=== PATIENT | female | born 1990 | race Caucasian/White ===

== ENCOUNTER 2016-05-13 14:15 | Emergency (ER) | payer OTHER ==
[2016-05-13 14:32] VITALS: BP 146/84; PULSE 101; RESP 20; TEMP 98
[2016-05-13] MEDS ORDERED: MORPHINE SULFATE 10 MG/ML SYRINGE IM STA (15:13)
[2016-05-13] MEDS ORDERED: KETOROLAC 60 MG/2 ML VIAL IM STA (15:13)
--- NOTE | 2016-05-13 15:16 | ED ---
General Adult HPI - General Chief complaint: Extremity Problem,Nontraumatic Stated complaint: L wrist injury Time Seen by Provider: 05/13/16 14:30 Source: patient, RN notes reviewed Mode of arrival: ambulatory Limitations: no limitations - History of Present Illness Initial comments: This is a 25-year-old female presents to the emergency department with a known history of carpal tunnel left wrist. Patient states she recently had injections by Dr. Tapia but still carpal tunnel is so painful she can't move her wrist. Patient states she's only been wearing her brace at night. Patient states she only takes Motrin at this time. Patient denies any recent injury or trauma to the area. Patient denies any hand pain or finger pain patient denies any elbow pain. Patient denies any swelling or redness. - Related Data Home Medications Medication Instructions Recorded Confirmed Cyclobenzaprine [Flexeril] 10 mg PO TID PRN 11/11/14 05/13/16 Previous Rx's Medication Instructions Recorded Ibuprofen [Motrin] 600 mg PO Q6HR PRN #20 tab 05/13/16 traMADol HCl [Ultram] 50 mg PO Q6H PRN #20 tab 05/13/16 Allergies Allergy/AdvReac Type Severity Reaction Status Date / Time cefprozil [From Cefzil] Allergy Unknown Verified 05/13/16 15:13 Review of Systems ROS Statement: Those systems with pertinent positive or pertinent negative responses have been documented in the HPI. ROS Other: All systems not noted in ROS Statement are negative. Past Medical History Past Medical History: Asthma Additional Past Medical History / Comment(s): back/neck pain, carpal tunnel History of Any Multi-Drug Resistant Organisms: None Reported Past Surgical History: Orthopedic Surgery Additional Past Surgical History / Comment(s): right ankle surgery 2013 Past Psychological History: No Psychological Hx Reported Smoking Status: Current every day smoker Past Alcohol Use History: Occasional Past Drug Use History: Marijuana General Exam - General Exam Comments Initial Comments: GENERAL Patient is well-developed and well-nourished. Patient is in mild distress. EYES Patient's pupils are equal and round. Extraocular motion is intact SKIN Unremarkable NEURO The patient is alert and oriented 3 PYSCH Patient has normal interpersonal interactions. MUSCULOSKELETAL Patient's wrist is tender in the anterior aspect of the wrist on the radial side. There is no swelling or redness patient does have full range of motion but it is painful Limitations: no limitations Course Vital Signs 05/13/16 14:29 Temperature 98.0 F Pulse Rate 101 H Respiratory 20 Rate Blood Pressure 146/84 O2 Sat by Pulse 99 Oximetry Disposition Clinical Impression: Carpal tunnel syndrome Disposition: HOME SELF-CARE Condition: Good Additional Instructions: Patient should take Motrin tramadol as prescribed. Patient should follow-up with orthopedics. Patient should wear her wrist brace all day long. Prescriptions: Ibuprofen [Motrin] 600 mg PO Q6HR PRN #20 tab PRN Reason: For pain traMADol HCl [Ultram] 50 mg PO Q6H PRN #20 tab PRN Reason: When necessary for pain Referrals: Dominik Viramontes MD [Primary Care Provider] - 1-2 days Time of Disposition: 15:15
== END 2016-05-13 15:31 | disposition home or self-care (01) ==
LOC: EC 14:15
DX: G56.02 Carpal tunnel syndrome, left upper limb (principal); F17.200 Nicotine dependence, unspecified, uncomplicated; Z88.1 Allergy status to other antibiotic agents
CPT/HCPCS: 99283; 96372 ×2; J2270; J1885

== ENCOUNTER 2017-01-15 11:23 | Observation (INO) | payer OTHER ==
[2017-01-15] MEDS ORDERED: methylPREDNISolone SOD SUCCI 125 MG/2 ML VIAL IV STA (11:44)
[2017-01-15] MEDS ORDERED: ALBUTEROL NEBULIZED 7.5 MG, IPRATROPIUM NEBULIZED 0.5 MG, SODIUM CHLORIDE 0.9% NEBULIZ ... INHALATION ONE ×3 (11:44)
[2017-01-15] MEDS ORDERED: IPRATROPIUM 0.5 MG/2.5 ML NEBU INHALATION STA (11:44)
--- NOTE | 2017-01-15 11:47 | ED ---
General Adult HPI - General Chief complaint: Shortness of Breath Stated complaint: JENNI Time Seen by Provider: 01/15/17 11:30 Source: patient, RN notes reviewed Mode of arrival: wheelchair Limitations: no limitations - History of Present Illness Initial comments: This is a 26-year-old female with past medical history significant for asthma. Patient comes in today stating that she is having an asthma exacerbation. Patient states about ongoing for 3 days. Patient states she has had a low- grade fever but hasn't taken her temperature. Patient has done breathing treatments but they haven't helped. Patient denies any chest pain or palpitations. Patient denies any nausea vomiting diarrhea. denies any leg swelling or calf tenderness. Patient denies headache patient denies numbness weakness. Patient denies any near syncopal or syncopal episodes. - Related Data Home Medications Medication Instructions Recorded Confirmed Albuterol Inhaler [Ventolin Hfa 1 - 2 puff INHALATION RT-Q6H PRN 01/15/17 Inhaler] Albuterol Nebulized [Ventolin 2.5 mg INHALATION RT-TID 01/15/17 01/15/17 Nebulized] Azithromycin [Zithromax Z-pack] See Taper PO DAILY 01/15/17 01/15/17 predniSONE 40 mg PO DAILY 01/15/17 01/15/17 Allergies Allergy/AdvReac Type Severity Reaction Status Date / Time cefprozil [From Cefzil] Allergy Unknown Verified 01/15/17 11:38 Review of Systems ROS Statement: Those systems with pertinent positive or pertinent negative responses have been documented in the HPI. ROS Other: All systems not noted in ROS Statement are negative. Past Medical History Past Medical History: Asthma Additional Past Medical History / Comment(s): back/neck pain, carpal tunnel History of Any Multi-Drug Resistant Organisms: None Reported Past Surgical History: Orthopedic Surgery Additional Past Surgical History / Comment(s): right ankle surgery 2013 Past Psychological History: No Psychological Hx Reported Smoking Status: Former smoker Past Alcohol Use History: Occasional Past Drug Use History: Marijuana General Exam - General Exam Comments Initial Comments: GENERAL: Patient is well-developed and well-nourished. Patient is nontoxic and well- hydrated and is in no acute distress. ENT: Neck is soft and supple. No significant lymphadenopathy is noted. Oropharynx is clear. Moist mucous membranes. EYES: The sclera were anicteric and conjunctiva were pink and moist. Extraocular movements were intact and pupils were equal round and reactive to light. Eyelids were unremarkable. PULMONARY: Patient's air movement is decreased. Patient is wheezing diffusely. CARDIOVASCULAR: There is a regular rate and rhythm without any murmurs gallops or rubs. Femoral pulses are equal bilaterally ABDOMEN: Soft and nontender with normal bowel sounds. Patient is morbidly obese SKIN: Skin is clear with no lesions or rashes and otherwise unremarkable. NEUROLOGIC: Patient is alert and oriented x3. Cranial nerves II through XII are grossly intact. Motor and sensory are also intact. Normal speech, volume and content. Symmetrical smile. MUSCULOSKELETAL: Normal extremities with adequate strength and full range of motion. No lower extremity swelling or edema. No calf tenderness. LYMPHATICS: No significant lymphadenopathy is noted PSYCHIATRIC: Normal psychiatric evaluation. Limitations: no limitations Course Vital Signs 01/15/17 01/15/17 01/15/17 11:29 12:15 12:30 Temperature 97.1 F L Pulse Rate 90 100 105 H Respiratory 24 Rate Blood Pressure 109/54 O2 Sat by Pulse 98 Oximetry 01/15/17 01/15/17 13:09 13:13 Temperature Pulse Rate 101 H 114 H Respiratory 20 Rate Blood Pressure 123/66 O2 Sat by Pulse 100 Oximetry Medical Decision Making - Medical Decision Making EKG shows sinus tachycardia at 109 bpm TX interval is 148 QRSs 86 QT interval 360 QTC is 484 per patient's EKG shows no ST segment elevation or depression or T wave abnormalities are noted. Chest x-ray showed no acute abnormality. After 3 breathing treatments the patient was still wheezing diffusely did not feel good enough to go home. I spoke with Dr. Alonso he agreed to admit the patient admitted the patient I wrote admitting orders - Lab Data Result diagrams: 01/15/17 12:05 01/15/17 12:05 Lab Results 01/15/17 01/15/17 01/15/17 Range/Units 12:05 12:05 12:05 WBC 14.6 H (3.8-10.6) k/uL RBC 5.23 (3.80-5.40) m/uL Hgb 14.9 (11.4-16.0) gm/dL Hct 44.5 (34.0-46.0) % MCV 85.0 (80.0-100.0) fL MCH 28.5 (25.0-35.0) pg MCHC 33.5 (31.0-37.0) g/dL RDW 15.6 H (11.5-15.5) % Plt Count 229 (150-450) k/uL Neutrophils % 73 % Lymphocytes % 16 % Monocytes % 6 % Eosinophils % 3 % Basophils % 0 % Neutrophils # 10.6 H (1.3-7.7) k/uL Lymphocytes # 2.4 (1.0-4.8) k/uL Monocytes # 0.9 (0-1.0) k/uL Eosinophils # 0.5 (0-0.7) k/uL Basophils # 0.1 (0-0.2) k/uL Sodium 143 (137-145) mmol/L Potassium 4.1 (3.5-5.1) mmol/L Chloride 109 H (98-107) mmol/L Carbon Dioxide 23 (22-30) mmol/L Anion Gap 11 mmol/L BUN 18 H (7-17) mg/dL Creatinine 0.78 (0.52-1.04) mg/dL Est GFR (MDRD) Af Amer >60 (>60 ml/min/1.73 sqM) Est GFR (MDRD) Non-Af >60 (>60 ml/min/1.73 sqM) Glucose 88 (74-99) mg/dL Calcium 9.6 (8.4-10.2) mg/dL Total Bilirubin 0.5 (0.2-1.3) mg/dL AST 38 H (14-36) U/L ALT 39 (9-52) U/L Alkaline Phosphatase 58 (38-126) U/L NT-Pro-B Natriuret Pep 102 pg/mL Total Protein 7.5 (6.3-8.2) g/dL Albumin 4.2 (3.5-5.0) g/dL Disposition Clinical Impression: Status asthmaticus Disposition: ADMITTED IP TO THIS HOSP Referrals: Nonstaff,Physician [REFERRING] - 1-2 days Time of Disposition: 14:27
[2017-01-15 12:21] LABS: Basophils # (A) 0.1 k/uL (0-0.2); Basophils % (A) 0 %; Eosinophils # (A) 0.5 k/uL (0-0.7); Eosinophils % (A) 3 %; HCT 44.5 % (34.0-46.0); HGB 14.9 gm/dL (11.4-16.0); Lymphocytes # (A) 2.4 k/uL (1.0-4.8); Lymphocytes % (A) 16 %; MCH 28.5 pg (25.0-35.0); MCHC 33.5 g/dL (31.0-37.0); Mean Platelet Volume 8.2; Monocytes # (A) 0.9 k/uL (0-1.0); Monocytes % (A) 6 %; Neutrophils # (A) 10.6 k/uL (1.3-7.7); Neutrophils % (A) 73 %; Platelet Count 229 k/uL (150-450); RBC 5.23 m/uL (3.80-5.40); RDW 15.6 % (11.5-15.5); WBC 14.6 k/uL (3.8-10.6)
[2017-01-15 12:31] LABS: ALT 39 U/L (9-52); AST 38 U/L (14-36); Albumin 4.2 g/dL (3.5-5.0); Alkaline Phosphatase 58 U/L (38-126); Anion Gap 11 mmol/L; Blood Urea Nitrogen 18 mg/dL (7-17); Calcium 9.6 mg/dL (8.4-10.2); Carbon Dioxide 23 mmol/L (22-30); Chloride 109 mmol/L (98-107); Glucose 88 mg/dL (74-99); Potassium 4.1 mmol/L (3.5-5.1); Sodium 143 mmol/L (137-145); Total Bilirubin 0.5 mg/dL (0.2-1.3); Total Protein 7.5 g/dL (6.3-8.2)
--- NOTE | 2017-01-15 12:36 | XR ---
EXAMINATION TYPE: XR chest 1V portable DATE OF EXAM: 01/15/2017 COMPARISON: NONE HISTORY: History of asthma with difficulty in breathing. TECHNIQUE: Single frontal view of the chest is obtained. FINDINGS: Low lung volumes are present. There is no focal air space opacity, pleural effusion, or pn eumothorax seen. The cardiac silhouette size is within normal limits. The osseous structures are i ntact. IMPRESSION: Low lung volumes or suboptimal inspiration without suspicious acute air space opacity.
[2017-01-15 15:32] VITALS: BMI 46.3
[2017-01-15] MEDS ORDERED: DOCUSATE 100 MG CAP PO PRN (16:49)
[2017-01-15] MEDS: HYDROcodone/APAP 7.5-325MG 1 EACH TAB PO PRN (17:49)
[2017-01-15] MEDS: methylPREDNISolone SOD SUCCI 125 MG/2 ML VIAL IV SCH (17:50)
[2017-01-15 20:45] LABS: Glucose,Whole Blood 120 mg/dL (75-99)
[2017-01-15] MEDS: IPRATROPIUM-ALBUTEROL 3 ML NEB INHALATION PRN (20:57)
[2017-01-15] MEDS ORDERED: INSULIN ASPART 100 UNIT/ML 1 ML 10 ML VIAL SQ SCH (21:00)
[2017-01-15] MEDS: INSULIN ASPART 100 UNIT/ML 1 ML 10 ML VIAL SQ SCH (21:36)
--- NOTE | 2017-01-15 22:18 | P.HPIM ---
History of Present Illness H&P Date: 01/15/17 Chief Complaint: Shortness of breath Patient is a 26-year-old female with past medical history significant for asthma since childhood and morbid obesity came to the hospital with complaints of worsening short of breath for the past 3 days. Patient was seen by her primary care physician and was started on prednisone and antibiotics in the form of azithromycin. Patient has been having worsening symptoms which made her to come to the hospital. Patient states she has had a low-grade fever but hasn't taken her temperature. Patient has done breathing treatments but they haven't helped. Patient denies any chest pain or palpitations. Patient denies any nausea vomiting diarrhea. Patient denies any leg swelling or calf tenderness. Patient denies headache patient denies numbness weakness. Patient denies any near syncopal or syncopal episodes. Patient denied any prior intubation. Chest x-ray showed low lung volume are suboptimal inspiration without suspicious for airspace disease EKG showed sinus tachycardia Review of Systems Constitutional: He does have subjective fevers and no chills . No generalized weakness or weight loss. Abdomen: Patient denied nausea vomiting and diarrhea and abdominal pain. Cardiovascular: Patient denies any chest pain or short of breath no palpitations. No leg swelling Respiratory: Patient has cough with mostly dry with mucus production. Patient does have shortness of breath. Neurologic: Patient denied any numbness or tingling headache. Musculoskeletal: Patient denies any complaints of joint swelling or deformity. Skin: Negative Psychiatric: Negative Endocrine: No heat or cold intolerance. No recent weight gain. Genitourinary: No dysuria or hematuria. All other 14 point ROS negative except the above Past Medical History Past Medical History: Asthma Additional Past Medical History / Comment(s): back/neck pain, carpal tunnel History of Any Multi-Drug Resistant Organisms: None Reported Past Surgical History: Orthopedic Surgery Additional Past Surgical History / Comment(s): right ankle surgery 2013 Past Psychological History: No Psychological Hx Reported Smoking Status: Former smoker Past Alcohol Use History: Occasional Past Drug Use History: Marijuana Medications and Allergies Home Medications Medication Instructions Recorded Confirmed Type Albuterol Inhaler [Ventolin Hfa 1 - 2 puff INHALATION RT-Q6H PRN 01/15/17 History Inhaler] Albuterol Nebulized [Ventolin 2.5 mg INHALATION RT-TID 01/15/17 01/15/17 History Nebulized] Azithromycin [Zithromax Z-pack] See Taper PO DAILY 01/15/17 01/15/17 History HYDROcodone/APAP 7.5-325MG [[place] 1 tab PO Q8HR PRN 01/15/17 01/15/17 History 7.5-325] predniSONE 40 mg PO DAILY 01/15/17 01/15/17 History Allergies Allergy/AdvReac Type Severity Reaction Status Date / Time cefprozil [From Cefzil] Allergy Unknown Verified 01/15/17 11:38 Physical Exam Vitals: Vital Signs Temp Pulse Resp BP Pulse Ox 01/15/17 16:00 22 01/15/17 15:07 97.7 F 101 H 22 118/74 98 01/15/17 13:13 114 H 01/15/17 13:09 101 H 20 123/66 100 01/15/17 12:30 105 H 01/15/17 12:15 100 01/15/17 11:29 97.1 F L 90 24 109/54 98 Intake and Output 01/15/17 01/15/17 01/15/17 06:59 14:59 22:59 Other: Voiding Method Toilet Weight 142.428 kg 142.428 kg Patient Weight 01/16/17 06:59 Weight 142.428 kg PHYSICAL EXAMINATION: Patient is lying in the bed comfortably, no acute distress, awake alert and oriented.. HEENT: Normocephalic. Neck is supple. Pupils reactive. Nostrils clear. Oral cavity is moist. Ears reveal no drainage. Neck reveals no JVD, carotid bruits, or thyromegaly. CHEST EXAMINATION: Trachea is central. Symmetrical expansion. Bilateral diffuse rhonchi and decreased air entry. Wheezing positive CARDIAC: Normal S1, S2 with no gallops. No murmurs ABDOMEN: Soft. Bowel sounds normal. No organomegaly. No abdominal bruits. Extremities: reveal no edema. No clubbing or cyanosis Neurologically awake, alert, oriented x3 with well-coordinated movements. No focal deficits noted Skin: No rash or skin lesions. Psychiatric: coOperative. Nonsuicidal Musculoskeletal: No joint swelling or deformity. Normal range of motion. Results CBC & Chem 7: 01/15/17 12:05 01/15/17 12:05 Labs: Abnormal Lab Results - Last 24 Hours (Table) 01/15/17 01/15/17 Range/Units 12:05 12:05 WBC 14.6 H (3.8-10.6) k/uL RDW 15.6 H (11.5-15.5) % Neutrophils # 10.6 H (1.3-7.7) k/uL Chloride 109 H (98-107) mmol/L BUN 18 H (7-17) mg/dL AST 38 H (14-36) U/L Thrombosis Risk Factor Assmnt - DVT/VTE Prophylaxis DVT/VTE Prophylaxis: Pharmacologic Prophylaxis ordered - Choose All That Apply Any of the Below Risk Factors Present?: Yes Each Factor Represents 1 point: Abnormal pulmonary function (COPD), Obesity ( BMI >25) Thrombosis Risk Factor Assessment Total Risk Factor Score: 2 Thrombosis Risk Factor Assessment Level: Low Risk Assessment and Plan Assessment: #1 acute asthma exacerbation. Severe persistent #2 possible acute bronchitis #3 morbid obesity with BMI 46.4 #4 mild leukocytosis Plan: Patient will be continued on IV methylprednisolone. DuoNeb's and follow closely. GI and DVT prophylaxis. Patient does not have any worsening cough or yellowish sputum production. Does not need any antibiotics at this time. Will follow closely. Further recommendations based on the clinical course. Recheck labs in the a.m.
[2017-01-16] MEDS: methylPREDNISolone SOD SUCCI 125 MG/2 ML VIAL IV SCH ×5 (00:20→23:31)
[2017-01-16] MEDS: IPRATROPIUM-ALBUTEROL 3 ML NEB INHALATION PRN ×6 (00:21→19:46)
[2017-01-16] MEDS: FAMOTIDINE 20 MG TAB PO SCH ×3 (00:24→22:19)
[2017-01-16 07:25] LABS: Glucose,Whole Blood 115 mg/dL (75-99)
[2017-01-16] MEDS: INSULIN ASPART 100 UNIT/ML 1 ML 10 ML VIAL SQ SCH ×4 (07:39→22:19)
[2017-01-16] MEDS: HYDROcodone/APAP 7.5-325MG 1 EACH TAB PO PRN ×2 (08:53→16:46)
[2017-01-16 08:54] LABS: Basophils % (A) 0 %; Eosinophils % (A) 0 %; HCT 46.9 % (34.0-46.0); HGB 14.9 gm/dL (11.4-16.0); Lymphocytes # (A) 1.1 k/uL (1.0-4.8); Lymphocytes % (A) 7 %; MCH 27.6 pg (25.0-35.0); MCHC 31.8 g/dL (31.0-37.0); MCV 86.7 fL (80.0-100.0); Mean Platelet Volume 7.9; Monocytes # (A) 0.3 k/uL (0-1.0); Monocytes % (A) 2 %; Neutrophils # (A) 14.5 k/uL (1.3-7.7); Neutrophils % (A) 91 %; Platelet Count 209 k/uL (150-450); RBC 5.41 m/uL (3.80-5.40); RDW 13.6 % (11.5-15.5)
[2017-01-16 09:13] LABS: Anion Gap 12 mmol/L; Blood Urea Nitrogen 18 mg/dL (7-17); Calcium 9.8 mg/dL (8.4-10.2); Carbon Dioxide 22 mmol/L (22-30); Chloride 107 mmol/L (98-107); Glucose 194 mg/dL (74-99); Potassium 3.8 mmol/L (3.5-5.1); Sodium 141 mmol/L (137-145)
[2017-01-16 12:14] LABS: Glucose,Whole Blood 95 mg/dL (75-99)
[2017-01-16] MEDS: DOCUSATE 100 MG CAP PO SCH ×2 (13:30→22:20)
[2017-01-16 16:59] LABS: Glucose,Whole Blood 170 mg/dL (75-99)
[2017-01-16] MEDS ORDERED: AZITHROMYCIN 500 MG in SODIUM CHLORIDE 0.9% 250 ML IVPB SCH (19:00)
[2017-01-16] MEDS: BUDESONIDE 1 MG/2 ML NEBU INHALATION SCH (19:46)
[2017-01-16 20:34] LABS: Glucose,Whole Blood 142 mg/dL (75-99)
[2017-01-16 21:50] LABS: Hemoglobin A1C 5.4 % (4.0-6.0)
[2017-01-16] MEDS: guaiFENesin 600 MG TABLET.ER PO SCH (22:19)
[2017-01-16] MEDS: cefTRIAXone IN SWFI 1,000 MG/10 ML SYRINGE IVP SCH ×2 (22:21→22:50)
--- NOTE | 2017-01-16 23:37 | P.PN ---
Subjective Progress Note Date: 01/16/17 Principal diagnosis: Acute asthma exacerbation Patient is a 26-year-old female with past medical history significant for asthma since childhood and morbid obesity came to the hospital with complaints of worsening short of breath for the past 3 days. Patient was seen by her primary care physician and was started on prednisone and antibiotics in the form of azithromycin. Patient has been having worsening symptoms which made her to come to the hospital. Patient states she has had a low-grade fever but hasn't taken her temperature. Patient has done breathing treatments but they haven't helped. Patient denies any chest pain or palpitations. Patient denies any nausea vomiting diarrhea. Patient denies any leg swelling or calf tenderness. Patient denies headache patient denies numbness weakness. Patient denies any near syncopal or syncopal episodes. Patient denied any prior intubation. Chest x-ray showed low lung volume are suboptimal inspiration without suspicious for airspace disease EKG showed sinus tachycardia 01/16/2017 Patient is still having significant shortness of breath and cough. Patient is not able to bring out any sputum at this time. Otherwise patient is afebrile no complaints of chest pain. Leukocytosis increased to 16 today. Patient does have shortness of breath with ambulation otherwise patient will be added with antibiotics and repeat chest x-ray tomorrow morning. Mucinex was added. We'll also had Pulmicort twice a day. Current medications reviewed Objective - Vital Signs Vital signs: Vital Signs Temp 98.1 F 01/16/17 15:44 Pulse 92 01/16/17 20:24 Resp 20 01/16/17 18:38 BP 121/78 01/16/17 15:44 Pulse Ox 91 L 01/16/17 15:44 Intake & Output 01/16/17 01/16/17 01/17/17 06:59 18:59 06:59 Other: # Voids 1 3 1 # Bowel Movements 1 1 - Exam PHYSICAL EXAMINATION: Patient is lying in the bed comfortably, no acute distress, awake alert and oriented.. Morbid obesity HEENT: Normocephalic. Neck is supple. Pupils reactive. Nostrils clear. Oral cavity is moist. Ears reveal no drainage. Neck reveals no JVD, carotid bruits, or thyromegaly. CHEST EXAMINATION: Trachea is central. Symmetrical expansion. Bilateral diffuse rhonchi and wheezing positive CARDIAC: Normal S1, S2 with no gallops. No murmurs ABDOMEN: Soft. Bowel sounds normal. No organomegaly. No abdominal bruits. Extremities: reveal no edema. No clubbing or cyanosis Neurologically awake, alert, oriented x3 with well-coordinated movements. No focal deficits noted Skin: No rash or skin lesions. Psychiatric: Cooperative. Nonsuicidal Musculoskeletal: No joint swelling or deformity. Normal range of motion. - Labs CBC & Chem 7: 01/16/17 08:17 01/16/17 08:17 Labs: Abnormal Lab Results - Last 24 Hours (Table) 01/16/17 01/16/17 01/16/17 Range/Units 06:54 08:17 08:17 WBC 16.0 H (3.8-10.6) k/uL RBC 5.41 H (3.80-5.40) m/uL Hct 46.9 H (34.0-46.0) % Neutrophils # 14.5 H (1.3-7.7) k/uL BUN 18 H (7-17) mg/dL Glucose 194 H (74-99) mg/dL POC Glucose (mg/dL) 115 H (75-99) mg/dL 01/16/17 01/16/17 Range/Units 16:48 20:32 WBC (3.8-10.6) k/uL RBC (3.80-5.40) m/uL Hct (34.0-46.0) % Neutrophils # (1.3-7.7) k/uL BUN (7-17) mg/dL Glucose (74-99) mg/dL POC Glucose (mg/dL) 170 H 142 H (75-99) mg/dL Assessment and Plan Assessment: #1 acute asthma exacerbation. Severe persistent. #2 acute trachea bronchitis. Failed outpatient therapy. #3 morbid obesity with BMI 46.4 #4 mild leukocytosis Plan: Patient will be continued on IV methylprednisolone. DuoNeb's and follow closely. We will add antibiotics in the form of ceftriaxone and azithromycin. GI and DVT prophylaxis. Will follow closely. Further recommendations based on the clinical course. Recheck labs in the a.m.
[2017-01-17] MEDS: HYDROcodone/APAP 7.5-325MG 1 EACH TAB PO PRN ×2 (06:25→17:17)
[2017-01-17] MEDS: methylPREDNISolone SOD SUCCI 125 MG/2 ML VIAL IV SCH ×2 (06:26→12:32)
--- NOTE | 2017-01-17 07:16 | XR ---
EXAMINATION TYPE: XR chest 1V DATE OF EXAM: 01/17/2017 HISTORY: SOB. REFERENCE: Previous study dated 01/15/2017. FINDINGS: The patient has taken a relatively poor inspiration. There are bilateral areas of platelike atelectasis. The heart projects slightly enlarged. This is likely due to the AP nature of the film. There is blunting of both CP angles. I could not exclude small effusions. IMPRESSION: 1. LIMITED INSPIRATION. 2. PROJECTION ONLY ENLARGED HEART. 3. BILATERAL AREAS OF PLATELIKE ATELECTASIS. 4. I COULD NOT EXCLUDE SMALL, BILATERAL EFFUSIONS.
[2017-01-17 07:33] LABS: Glucose,Whole Blood 136 mg/dL (75-99)
[2017-01-17] MEDS: DOCUSATE 100 MG CAP PO SCH (07:50)
[2017-01-17] MEDS: INSULIN ASPART 100 UNIT/ML 1 ML 10 ML VIAL SQ SCH ×2 (07:50→12:31)
[2017-01-17] MEDS: FAMOTIDINE 20 MG TAB PO SCH (07:50)
[2017-01-17] MEDS: guaiFENesin 600 MG TABLET.ER PO SCH (07:50)
[2017-01-17 08:04] LABS: Basophils % (A) 0 %; Eosinophils % (A) 0 %; HCT 43.2 % (34.0-46.0); HGB 14.2 gm/dL (11.4-16.0); Lymphocytes % (A) 6 %; MCH 28.5 pg (25.0-35.0); MCV 86.4 fL (80.0-100.0); Mean Platelet Volume 8.1; Monocytes # (A) 0.4 k/uL (0-1.0); Monocytes % (A) 3 %; Neutrophils # (A) 15.3 k/uL (1.3-7.7); Neutrophils % (A) 91 %; Platelet Count 234 k/uL (150-450); RDW 14.8 % (11.5-15.5); WBC 16.9 k/uL (3.8-10.6)
[2017-01-17 08:18] LABS: Anion Gap 11 mmol/L; Blood Urea Nitrogen 18 mg/dL (7-17); Calcium 9.5 mg/dL (8.4-10.2); Carbon Dioxide 22 mmol/L (22-30); Chloride 107 mmol/L (98-107); Glucose 143 mg/dL (74-99); Sodium 140 mmol/L (137-145)
[2017-01-17 08:20] VITALS: RESP 18
[2017-01-17] MEDS: BUDESONIDE 1 MG/2 ML NEBU INHALATION SCH (08:53)
[2017-01-17] MEDS: IPRATROPIUM-ALBUTEROL 3 ML NEB INHALATION PRN ×3 (08:54→15:31)
[2017-01-17 12:31] LABS: Glucose,Whole Blood 105 mg/dL (75-99)
[2017-01-17 15:44] VITALS: BP 134/78; TEMP 97.5
[2017-01-17] MEDS ORDERED: predniSONE 50 MG TAB PO SCH (16:15)
[2017-01-17 16:22] VITALS: PULSE 88
[2017-01-17 16:50] LABS: Glucose,Whole Blood 163 mg/dL (75-99)
--- NOTE | 2017-01-18 00:04 | P.DS ---
Providers Date of admission: 01/15/17 14:28 Expected date of discharge: 01/17/17 Attending physician: Alexander Alonso Primary care physician: Dominik Viramontes Hospital Course: Discharge diagnosis #1 acute asthma exacerbation. Severe persistent. Improved #2 acute trachea bronchitis. Failed outpatient therapy. #3 morbid obesity with BMI 46.4 #4 mild leukocytosis Hospital course Patient is a 26-year-old female with past medical history significant for asthma since childhood and morbid obesity came to the hospital with complaints of worsening short of breath for the past 3 days. Patient was seen by her primary care physician and was started on prednisone and antibiotics in the form of azithromycin. Patient has been having worsening symptoms which made her to come to the hospital. Patient states she has had a low-grade fever but hasn't taken her temperature. Patient has done breathing treatments but they haven't helped. Patient denies any chest pain or palpitations. Patient denies any nausea vomiting diarrhea. Patient denies any leg swelling or calf tenderness. Patient denies headache patient denies numbness weakness. Patient denies any near syncopal or syncopal episodes. Patient denied any prior intubation. Chest x-ray showed low lung volume are suboptimal inspiration without suspicious for airspace disease EKG showed sinus tachycardia 01/16/2017 Patient is still having significant shortness of breath and cough. Patient is not able to bring out any sputum at this time. Otherwise patient is afebrile no complaints of chest pain. Leukocytosis increased to 16 today. Patient does have shortness of breath with ambulation otherwise patient will be added with antibiotics and repeat chest x-ray tomorrow morning. Mucinex was added. We'll also had Pulmicort twice a day. 01/17/2017 Patient's breathing status is much improved. Steroids changed to by mouth. No complaints of chest pain or worsening short of breath. Patient was to be discharged home Patient was continued on IV methylprednisolone. DuoNeb's and antibiotics in the form of ceftriaxone and azithromycin. GI and DVT prophylaxis. Followed closely. Patient did improve clinically. Methylprednisolone changed to prednisone. Patient was discharged home with tapering steroid dose and antibiotics. Patient is stable to be discharged home. Current medications reviewed and discharged physical examination was done Patient Condition at Discharge: Good Plan - Discharge Summary Discharge Rx Participant: Yes New Discharge Prescriptions: New Azithromycin [Zithromax] 500 mg PO DAILY #3 tab predniSONE See Taper PO DAILY #30 tab Discontinued Azithromycin [Zithromax Z-pack] See Taper PO DAILY predniSONE 40 mg PO DAILY No Action Albuterol Nebulized [Ventolin Nebulized] 2.5 mg INHALATION RT-TID Albuterol Inhaler [Ventolin Hfa Inhaler] 1 - 2 puff INHALATION RT-Q6H PRN PRN Reason: Shortness Of Breath HYDROcodone/APAP 7.5-325MG [[place] 7.5-325] 1 tab PO Q8HR PRN PRN Reason: Pain Discharge Medication List Albuterol Inhaler [Ventolin Hfa Inhaler] 1 - 2 puff INHALATION RT-Q6H PRN [History] Albuterol Nebulized [Ventolin Nebulized] 2.5 mg INHALATION RT-TID 01/15/17 [ History] HYDROcodone/APAP 7.5-325MG [[place] 7.5-325] 1 tab PO Q8HR PRN 01/15/17 [History] Azithromycin [Zithromax] 500 mg PO DAILY #3 tab 01/17/17 [Rx] predniSONE See Taper PO DAILY #30 tab 01/17/17 [Rx] Follow up Appointment(s)/Referral(s): Nonstaff,Physician [REFERRING] - 1-2 days Patient Instructions/Handouts: Asthma (DC) Discharge Disposition: HOME SELF-CARE
== END 2017-01-17 17:36 | disposition home or self-care (01) ==
LOC: EC 11:23 → 4MS4W 14:28 → INTOOBSV 14:28
PROVIDERS: ADMIT Hospitalist; ATTEND Hospitalist
DX: J45.51 Severe persistent asthma with (acute) exacerbation (principal); J20.9 Acute bronchitis, unspecified; Z68.42 Body mass index [BMI] 45.0-49.9, adult; E66.01 Morbid (severe) obesity due to excess calories; D72.829 Elevated white blood cell count, unspecified; R00.0 Tachycardia, unspecified; Z87.891 Personal history of nicotine dependence; Z79.2 Long term (current) use of antibiotics; Z79.52 Long term (current) use of systemic steroids; Z79.899 Other long term (current) drug therapy; Z88.1 Allergy status to other antibiotic agents
CPT/HCPCS: 96376 ×3; 96365; 96366; 96375 ×2; 99285; 36415; 94640 ×5; 94760; 94644; 93005; 83880; 80053; 80048 ×2; 85025 ×3; 83036; 71010 ×2; G0378 ×3; J2930 ×3; J0456; J0696; J7512; 96374

== ENCOUNTER → 2017-02-23 | Outpatient (CLI) | payer OTHER ==
--- NOTE | 2017-02-24 07:26 | US ---
EXAMINATION TYPE: US transvaginal DATE OF EXAM: 02/23/2017 COMPARISON: NONE CLINICAL HISTORY: N92.1 Menometterogia. bleeding for 1/5 months TECHNIQUE: Transvaginal (TV) Date of LMP: 3 weeks agoo EXAM MEASUREMENTS: Uterus: 6.3 x 2.5 x 3.4 cm Endometrial Stripe: 0.5 cm Right Ovary: 4.0 x 2.9 x 2.7 cm Left Ovary: 3.6 x 2.7 x 2.7 cm 1. Uterus: Retroverted 2. Endometrium: wnl 3. Right Ovary: wnl 4. Left Ovary: wnl 5. Bilateral Adnexa: wnl 6. Posterior cul-de-sac: wnl Essentialy normal exam IMPRESSION: No significant abnormality appreciated.
== END | disposition home or self-care (01) ==
LOC: RADUSWWP 16:10
PROVIDERS: ATTEND Pediatrics
DX: N92.1 Excessive and frequent menstruation with irregular cycle (principal)
CPT/HCPCS: 76830

== ENCOUNTER 2017-11-22 17:29 | Emergency (ER) | payer OTHER ==
[2017-11-22 17:35] VITALS: RESP 18
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
[2017-11-22 19:04] VITALS: BP 109/67; PULSE 89; TEMP 98.6
== END 2017-11-22 19:01 | disposition home or self-care (01) ==
LOC: EC 17:29
DX: S06.0X0A Concussion without loss of consciousness, initial encounter (principal); S01.112A Laceration without foreign body of left eyelid and periocular area, initial encounter; F17.200 Nicotine dependence, unspecified, uncomplicated; Z88.1 Allergy status to other antibiotic agents; Y08.89XA Assault by other specified means, initial encounter; Y92.89 Other specified places as the place of occurrence of the external cause
CPT/HCPCS: 12011; 70450; 99284

== ENCOUNTER 2018-07-02 16:57 | Emergency (ER) | payer OTHER ==
[2018-07-02] MEDS ORDERED: IPRATROPIUM 0.5 MG/2.5 ML NEBU INHALATION STA ×2 (17:07→18:44)
[2018-07-02] MEDS ORDERED: DEXAMETHASONE 4 MG TAB PO STA (17:07)
[2018-07-02] MEDS ORDERED: ALBUTEROL NEBULIZED 2.5 MG/3 ML INHALATION STA ×2 (17:07→18:44)
--- NOTE | 2018-07-02 17:09 | ED ---
General Adult HPI - General Chief complaint: Shortness of Breath Stated complaint: asthma/deep cough Time Seen by Provider: 07/02/18 17:02 Source: patient, family Mode of arrival: ambulatory Limitations: no limitations - History of Present Illness Initial comments: Dictation was produced using [employer] dictation software. please excuse any grammatical, word or spelling errors. Chief Complaint: 27-year-old female past medical history of asthma presents with difficulty breathing 3 days. History of Present Illness: Patient 27-year-old female she has past medical history of asthma. She's been short of breath for the past 3 days. She does not have a family living educator. Denies any fever, chills or night sweats. 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 She has been using her albuterol inhaler home with no resolution of her symptoms. She presents today. She is needs more help. Patient has any chest pain. No other complaints at this time. The ROS documented in this emergency department record has been reviewed and confirmed by me. Those systems with pertinent positive or negative responses have been documented in the HPI. All other systems are other negative and/or noncontributory. PHYSICAL EXAM: General Impression: Alert and oriented x3, tachypneic HEENT: Normocephalic atraumatic, extra-ocular movements intact, pupils equal and reactive to light bilaterally, mucous membranes moist. Cardiovascular: Heart regular rate and rhythm, S1&S2 audible, no murmurs, rubs or gallops Chest: Bilateral lung wheezing Abdomen: Bowel sounds present, abdomen soft, non-tender, non-distended, no or ganomegaly Musculoskeletal: Pulses present and equal in all extremities, no peripheral edema Motor: no focal deficits noted Neurological: CN II-XII grossly intact, no focal motor or sensory deficits noted Skin: Intact with no visualized rashes Psych: Normal affect and mood ED course: 27-year-old female presents with chief complaint of dyspnea. As upon arrival shows heart rate of 108, respiratory rate of 30-94% on room oxygen. Patient immediately brought back to resuscitation room. She was given breathing treatment, steroids and intravenous fluids. Laboratory evaluation obtained out of the unremarkable. Chest x-ray shows no acute processes. Patient reevaluated after steroid administration and 2 rounds of breathing treatments with improved symptoms. Patient feels well enough to go home. Patient is requesting refill for her albuterol inhaler. Patient is also will be given prescription for Decadron to take in 48-72 hours. Return parameters discussed. She is advised to follow-up with primary care physician upon discharge. - Related Data Home Medications Medication Instructions Recorded Confirmed Albuterol Inhaler [Ventolin Hfa 1 - 2 puff INHALATION RT-Q6H PRN 07/02/18 07/02/18 Inhaler] Montelukast [Singulair] 10 mg PO DAILY 07/02/18 07/02/18 Previous Rx's Medication Instructions Recorded Albuterol Inhaler [Ventolin Hfa 1 - 2 puff INHALATION RT-Q6H PRN 07/02/18 Inhaler] #1 inhaler Dexamethasone [Decadron] 12 mg PO ONCE #2 tablet 07/02/18 Allergies Allergy/AdvReac Type Severity Reaction Status Date / Time cefprozil [From Cefzil] Allergy Unknown Verified 07/02/18 17:15 Review of Systems ROS Statement: Those systems with pertinent positive or pertinent negative responses have been documented in the HPI. ROS Other: All systems not noted in ROS Statement are negative. Past Medical History Past Medical History: Asthma Additional Past Medical History / Comment(s): back/neck pain, carpal tunnel History of Any Multi-Drug Resistant Organisms: None Reported Past Surgical History: Orthopedic Surgery Additional Past Surgical History / Comment(s): right ankle surgery 2014 Past Psychological History: No Psychological Hx Reported Smoking Status: Current every day smoker Past Alcohol Use History: Occasional Past Drug Use History: Marijuana General Exam Limitations: no limitations Course Vital Signs 07/02/18 07/02/18 07/02/18 17:00 17:10 17:28 Temperature 97.3 F L Pulse Rate 108 H 108 H 110 H Respiratory 32 H Rate Blood Pressure 152/86 O2 Sat by Pulse 94 L Oximetry 07/02/18 07/02/18 07/02/18 18:13 19:05 19:27 Temperature Pulse Rate 112 H 123 H 109 H Respiratory 24 Rate Blood Pressure 135/84 O2 Sat by Pulse 95 Oximetry Medical Decision Making - Lab Data Result diagrams: 07/02/18 19:06 07/02/18 19:06 Lab Results 07/02/18 07/02/18 Range/Units 19:06 19:06 WBC 4.4 (3.8-10.6) k/uL RBC 5.16 (3.80-5.40) m/uL Hgb 14.7 (11.4-16.0) gm/dL Hct 44.3 (34.0-46.0) % MCV 85.7 (80.0-100.0) fL MCH 28.4 (25.0-35.0) pg MCHC 33.1 (31.0-37.0) g/dL RDW 13.4 (11.5-15.5) % Plt Count 161 (150-450) k/uL Neutrophils % 80 % Lymphocytes % 13 % Monocytes % 3 % Eosinophils % 1 % Basophils % 0 % Neutrophils # 3.5 (1.3-7.7) k/uL Lymphocytes # 0.6 L (1.0-4.8) k/uL Monocytes # 0.1 (0-1.0) k/uL Eosinophils # 0.1 (0-0.7) k/uL Basophils # 0.0 (0-0.2) k/uL Sodium 139 (137-145) mmol/L Potassium 4.6 (3.5-5.1) mmol/L Chloride 105 (98-107) mmol/L Carbon Dioxide 21 L (22-30) mmol/L Anion Gap 13 mmol/L BUN 13 (7-17) mg/dL Creatinine 0.65 (0.52-1.04) mg/dL Est GFR (CKD-EPI)AfAm >90 (>60 ml/min/1.73 sqM) Est GFR (CKD-EPI)NonAf >90 (>60 ml/min/1.73 sqM) Glucose 150 H (74-99) mg/dL Calcium 9.2 (8.4-10.2) mg/dL Disposition Clinical Impression: Asthma exacerbation Disposition: HOME SELF-CARE Condition: Good Instructions (If sedation given, give patient instructions): Asthma (ED) Prescriptions: Dexamethasone [Decadron] 12 mg PO ONCE #2 tablet Albuterol Inhaler [Ventolin Hfa Inhaler] 1 - 2 puff INHALATION RT-Q6H PRN #1 inhaler PRN Reason: Dyspnea Is patient prescribed a controlled substance at d/c from ED?: No Referrals: Flaquita Goodman MD [Primary Care Provider] - 1-2 days Time of Disposition: 19:41
[2018-07-02] MEDS ORDERED: SODIUM CHLORIDE 0.9% 500 ML IV STA (17:10)
--- NOTE | 2018-07-02 18:26 | XR ---
EXAMINATION TYPE: XR chest 2V DATE OF EXAM: 07/02/2018 COMPARISON: 01/17/2017 HISTORY: Short of breath and cough TECHNIQUE: Frontal and lateral views of the chest are obtained. FINDINGS: Heart and mediastinum are normal. Lungs are clear of infiltrate. There is no pleural effus ion. Bony thorax is intact. IMPRESSION: Normal chest. There is improved inspiration compared to old exam.
[2018-07-02 19:17] LABS: Basophils % (A) 0 %; Eosinophils # (A) 0.1 k/uL (0-0.7); Eosinophils % (A) 1 %; HCT 44.3 % (34.0-46.0); HGB 14.7 gm/dL (11.4-16.0); Lymphocytes # (A) 0.6 k/uL (1.0-4.8); Lymphocytes % (A) 13 %; MCH 28.4 pg (25.0-35.0); MCHC 33.1 g/dL (31.0-37.0); MCV 85.7 fL (80.0-100.0); Mean Platelet Volume 7.8; Monocytes # (A) 0.1 k/uL (0-1.0); Monocytes % (A) 3 %; Neutrophils # (A) 3.5 k/uL (1.3-7.7); Neutrophils % (A) 80 %; Platelet Count 161 k/uL (150-450); RBC 5.16 m/uL (3.80-5.40); RDW 13.4 % (11.5-15.5); WBC 4.4 k/uL (3.8-10.6)
[2018-07-02 19:24] LABS: Anion Gap 13 mmol/L; Blood Urea Nitrogen 13 mg/dL (7-17); Calcium 9.2 mg/dL (8.4-10.2); Carbon Dioxide 21 mmol/L (22-30); Chloride 105 mmol/L (98-107); Glucose 150 mg/dL (74-99); Potassium 4.6 mmol/L (3.5-5.1); Sodium 139 mmol/L (137-145)
[2018-07-02 20:27] VITALS: BP 126/68; PULSE 78; RESP 16; TEMP 97.8
== END 2018-07-02 20:15 | disposition home or self-care (01) ==
LOC: EC 16:57
DX: J45.901 Unspecified asthma with (acute) exacerbation (principal); F17.200 Nicotine dependence, unspecified, uncomplicated; Z79.899 Other long term (current) drug therapy; Z88.1 Allergy status to other antibiotic agents
CPT/HCPCS: 99285; 36415; 94644; 94645; 80048; 85025; 71046; J8540

== ENCOUNTER 2019-12-10 18:04 | Emergency (ER) | payer OTHER ==
[2019-12-10] MEDS ORDERED: IPRATROPIUM-ALBUTEROL 3 ML NEB INHALATION STA (18:28)
[2019-12-10] MEDS ORDERED: methylPREDNISolone SOD SUCCI 125 MG/2 ML VIAL IV STA (18:28)
[2019-12-10] MEDS ORDERED: ACETAMINOPHEN TAB 325 MG TAB PO STA (18:57)
[2019-12-10 18:59] LABS: Basophils # (A) 0.1 k/uL (0-0.2); Basophils % (A) 0 %; Eosinophils # (A) 0.4 k/uL (0-0.7); Eosinophils % (A) 3 %; HCT 41.9 % (34.0-46.0); HGB 14.3 gm/dL (11.4-16.0); Lymphocytes # (A) 1.5 k/uL (1.0-4.8); Lymphocytes % (A) 10 %; MCH 28.7 pg (25.0-35.0); MCHC 34.1 g/dL (31.0-37.0); MCV 84.1 fL (80.0-100.0); Monocytes # (A) 0.6 k/uL (0-1.0); Monocytes % (A) 4 %; Neutrophils % (A) 83 %; Platelet Count 162 k/uL (150-450); RBC 4.98 m/uL (3.80-5.40); RDW 13.1 % (11.5-15.5); WBC 15.7 k/uL (3.8-10.6)
[2019-12-10 19:03] LABS: Appearance,Urine Clear (Clear); Bilirubin,Urine Negative (Negative); Blood,Urine Negative (Negative); Color,Urine Yellow; Glucose,Urine (UA) Negative (Negative); Ketones,Urine Negative (Negative); Leukocyte Esterase,Urine Negative (Negative); Nitrite,Urine Negative (Negative); Protein,Urine Negative (Negative); Specific Gravity,Urine 1.023 (1.001-1.035); Urobilinogen,Urine <2.0 mg/dL (<2.0)
[2019-12-10 19:08] LABS: ALT 15 U/L (4-34); AST 26 U/L (14-36); African American GFR (CKD) >90 (>60 ml/min/1.73 sqM); Albumin 4.3 g/dL (3.5-5.0); Alkaline Phosphatase 57 U/L (38-126); Anion Gap 8 mmol/L; Blood Urea Nitrogen 14 mg/dL (7-17); Calcium 9.2 mg/dL (8.4-10.2); Carbon Dioxide 24 mmol/L (22-30); Chloride 106 mmol/L (98-107); Glucose 95 mg/dL (74-99); Non-African American GFR(CKD) >90 (>60 ml/min/1.73 sqM); Sodium 138 mmol/L (137-145); Total Bilirubin 0.6 mg/dL (0.2-1.3); Total Protein 7.2 g/dL (6.3-8.2)
--- NOTE | 2019-12-10 19:52 | XR ---
EXAMINATION TYPE: XR chest 2V DATE OF EXAM: 12/10/2019 COMPARISON: 07/02/2018 HISTORY: Short of breath TECHNIQUE: FINDINGS: Heart is normal. Lungs are clear of consolidation. There are no hilar masses. There are roxana st leads. Bony thorax is intact. IMPRESSION: No active cardiopulmonary disease. No change.
[2019-12-10 20:07] VITALS: RESP 18
[2019-12-10] MEDS ORDERED: ALBUTEROL NEBULIZED 2.5 MG/3 ML INHALATION STA (20:23)
[2019-12-10 21:06] VITALS: PULSE 100
--- NOTE | 2019-12-10 21:45 | ED ---
General Adult HPI - General Chief complaint: Shortness of Breath Stated complaint: JENNI,cough Time Seen by Provider: 12/10/19 18:22 Source: patient, RN notes reviewed, old records reviewed Mode of arrival: ambulatory Limitations: no limitations - History of Present Illness Initial comments: 29-year-old female patient past medical history of asthma presents ED for evaluation of asthma exacerbation. Patient reports that for the last 3 days or so she has been coughing wheezing feels that her asthma is acting up. States that she has and feeling generally weak. Denies any fevers. Denies any other complaints. Systemic: Pt denies fatigue, fever/chills, rash. Pt denies weakness, night sweats, weight loss. Neuro: Pt denies headache, visual disturbances, syncope or pre-syncope. HEENT: Pt denies ocular discharge or irritation, otalgia, rhinorrhea, pharyngitis or notable lymphadenopathy. Cardiopulmonary: Pt denies heart palpitations, dyspnea on exertion. Abdominal/GI: Pt denies abdominal pain, n/v/d. : Pt denies dysuria, burning w/ urination, frequency/urgency. Denies new onset urinary or bowel incontinence. MSK: Pt denies myalgia, loss of strength or function in extremities. Neuro: Pt denies new onset weakness, paresthesias. - Related Data Home Medications Medication Instructions Recorded Confirmed Albuterol Inhaler (Mhu) [Ventolin 1 - 2 puff INHALATION RT-Q6H PRN 07/02/18 07/02/18 Hfa Inhaler] Montelukast [Singulair] 10 mg PO DAILY 07/02/18 07/02/18 Previous Rx's Medication Instructions Recorded Albuterol Inhaler (Mhu) [Ventolin 1 - 2 puff INHALATION RT-Q6H PRN 07/02/18 Hfa Inhaler] #1 inhaler Dexamethasone [Decadron] 12 mg PO ONCE #2 tablet 07/02/18 predniSONE 50 mg PO DAILY #5 tab 12/10/19 Allergies Allergy/AdvReac Type Severity Reaction Status Date / Time cefprozil [From Cefzil] Allergy Unknown Verified 12/10/19 18:15 Review of Systems ROS Statement: Those systems with pertinent positive or pertinent negative responses have been documented in the HPI. ROS Other: All systems not noted in ROS Statement are negative. Past Medical History Past Medical History: Asthma Additional Past Medical History / Comment(s): back/neck pain, carpal tunnel History of Any Multi-Drug Resistant Organisms: None Reported Past Surgical History: Orthopedic Surgery Additional Past Surgical History / Comment(s): right ankle surgery 2013 Past Psychological History: No Psychological Hx Reported Smoking Status: Current every day smoker Past Alcohol Use History: Occasional Past Drug Use History: Marijuana General Exam - General Exam Comments Initial Comments: Constitutional: NAD, AOX3, Pt has pleasant affect. HEENT: NC/AT, trachea midline, neck supple, no lymphadenopathy. Posterior pharynx non erythematous, without exudates. External ears appear normal, without discharge. Mucous membranes moist. Eyes PERRLA, EOM intact. There is no scleral icterus. No pallor noted. Cardiopulmonary: RRR, no murmurs, rubs or gallops, no JVD noted. Wheezing noted in anterior and posterior lung messer. No peripheral edema. Abdominal exam: Abdomen soft and non-distended. Abdomen non-tender to palpation in all 4 quadrants. Bowel sounds active in LLQ. No hepatosplenomegaly. No ecch ymosis Neuro: CN II-XII grossly intact. No nuchal rigidity. No raccon eyes, no archuleta sign, no hemotympanum. No cervical spinal tenderness. MSK: No posterior calf tenderness bilaterally, homans sign negative bilaterally. Posterior tibialis and radial pulse +2 bilaterally. Sensation intact in upper and lower extremities. Full active ROM in upper and lower extremities, 5/5 stregnth. Limitations: no limitations Course Vital Signs 12/10/19 12/10/19 12/10/19 18:12 19:05 19:22 Temperature 99.8 F H Pulse Rate 115 H 98 103 H Respiratory 20 20 19 Rate Blood Pressure 128/80 O2 Sat by Pulse 98 Oximetry 12/10/19 12/10/19 12/10/19 20:00 20:55 21:00 Temperature 98.6 F Pulse Rate 98 99 112 H Respiratory 18 18 18 Rate Blood Pressure 111/69 O2 Sat by Pulse 98 96 Oximetry 12/10/19 21:05 Temperature Pulse Rate 100 Respiratory 18 Rate Blood Pressure O2 Sat by Pulse Oximetry Medical Decision Making - Medical Decision Making 29-year-old female patient history of asthma present C for chief complaint cough shortness of breath and wheezing asthma exacerbation. Patient vital signs are stable, afebrile. Physical exam displayed wheezing. Laboratory investigations revealed mild leukocytosis d-dimer is negative. Chest x-ray is negative for acute pathology. EKG is nonischemic. Chest are negative for acute process. Patient is feeling much improved after multiple breathing treatments, steroids. Is requesting discharge. Wheezing has improved. I did offer admission the patient which she is declining. States that she has breathing treatments at home. We'll discharge her steroids will be tested for Covid and will return to ER with any worsening symptoms. Case discussed with Dr. Figueroa. - Lab Data Result diagrams: 12/10/19 18:41 12/10/19 18:41 Lab Results 12/10/19 12/10/19 12/10/19 Range/Units 18:41 18:41 18:41 WBC 15.7 H (3.8-10.6) k/uL RBC 4.98 (3.80-5.40) m/uL Hgb 14.3 (11.4-16.0) gm/dL Hct 41.9 (34.0-46.0) % MCV 84.1 (80.0-100.0) fL MCH 28.7 (25.0-35.0) pg MCHC 34.1 (31.0-37.0) g/dL RDW 13.1 (11.5-15.5) % Plt Count 162 (150-450) k/uL Neutrophils % 83 % Lymphocytes % 10 % Monocytes % 4 % Eosinophils % 3 % Basophils % 0 % Neutrophils # 13.0 H (1.3-7.7) k/uL Lymphocytes # 1.5 (1.0-4.8) k/uL Monocytes # 0.6 (0-1.0) k/uL Eosinophils # 0.4 (0-0.7) k/uL Basophils # 0.1 (0-0.2) k/uL D-Dimer 0.33 (<0.60) mg/L FEU Sodium 138 (137-145) mmol/L Potassium 4.0 (3.5-5.1) mmol/L Chloride 106 (98-107) mmol/L Carbon Dioxide 24 (22-30) mmol/L Anion Gap 8 mmol/L BUN 14 (7-17) mg/dL Creatinine 0.69 (0.52-1.04) mg/dL Est GFR (CKD-EPI)AfAm >90 (>60 ml/min/1.73 sqM) Est GFR (CKD-EPI)NonAf >90 (>60 ml/min/1.73 sqM) Glucose 95 (74-99) mg/dL Calcium 9.2 (8.4-10.2) mg/dL Total Bilirubin 0.6 (0.2-1.3) mg/dL AST 26 (14-36) U/L ALT 15 (4-34) U/L Alkaline Phosphatase 57 (38-126) U/L Troponin I (0.000-0.034) ng/mL Total Protein 7.2 (6.3-8.2) g/dL Albumin 4.3 (3.5-5.0) g/dL Urine Color Urine Appearance (Clear) Urine pH (5.0-8.0) Ur Specific [place] (1.001-1.035) Urine Protein (Negative) Urine Glucose (UA) (Negative) Urine Ketones (Negative) Urine Blood (Negative) Urine Nitrite (Negative) Urine Bilirubin (Negative) Urine Urobilinogen (<2.0) mg/dL Ur Leukocyte Esterase (Negative) Urine HCG, Qual (Not Detectd) 12/10/19 12/10/19 12/10/19 Range/Units 18:41 18:41 18:41 WBC (3.8-10.6) k/uL RBC (3.80-5.40) m/uL Hgb (11.4-16.0) gm/dL Hct (34.0-46.0) % MCV (80.0-100.0) fL MCH (25.0-35.0) pg MCHC (31.0-37.0) g/dL RDW (11.5-15.5) % Plt Count (150-450) k/uL Neutrophils % % Lymphocytes % % Monocytes % % Eosinophils % % Basophils % % Neutrophils # (1.3-7.7) k/uL Lymphocytes # (1.0-4.8) k/uL Monocytes # (0-1.0) k/uL Eosinophils # (0-0.7) k/uL Basophils # (0-0.2) k/uL D-Dimer (<0.60) mg/L FEU Sodium (137-145) mmol/L Potassium (3.5-5.1) mmol/L Chloride (98-107) mmol/L Carbon Dioxide (22-30) mmol/L Anion Gap mmol/L BUN (7-17) mg/dL Creatinine (0.52-1.04) mg/dL Est GFR (CKD-EPI)AfAm (>60 ml/min/1.73 sqM) Est GFR (CKD-EPI)NonAf (>60 ml/min/1.73 sqM) Glucose (74-99) mg/dL Calcium (8.4-10.2) mg/dL Total Bilirubin (0.2-1.3) mg/dL AST (14-36) U/L ALT (4-34) U/L Alkaline Phosphatase (38-126) U/L Troponin I <0.012 (0.000-0.034) ng/mL Total Protein (6.3-8.2) g/dL Albumin (3.5-5.0) g/dL Urine Color Yellow Urine Appearance Clear (Clear) Urine pH 7.0 (5.0-8.0) Ur Specific [place] 1.023 (1.001-1.035) Urine Protein Negative (Negative) Urine Glucose (UA) Negative (Negative) Urine Ketones Negative (Negative) Urine Blood Negative (Negative) Urine Nitrite Negative (Negative) Urine Bilirubin Negative (Negative) Urine Urobilinogen <2.0 (<2.0) mg/dL Ur Leukocyte Esterase Negative (Negative) Urine HCG, Qual Not Detected (Not Detectd) - EKG Data -: EKG Interpreted by Me (and Dr. Figueroa ) EKG Comments: ventricular rate 94,. Full on 56, QRS 84, QT/QTC 362/4:15. Normalsinus rhythm with sinus arrhythmia. Normal EKG, no concern for acute ischemia. Disposition Clinical Impression: Asthma exacerbation Disposition: HOME SELF-CARE Condition: Stable Instructions (If sedation given, give patient instructions): Asthma (ED) Additional Instructions: Use steroids as directed. Use breathing treatments as needed. Follow up with primary care provider tomorrow. Return to ER with any worsening symptoms. I do recommend self quarantined until results of coronavirus test. Prescriptions: predniSONE 50 mg PO DAILY #5 tab Is patient prescribed a controlled substance at d/c from ED?: No Referrals: None,Stated [Primary Care Provider] - 1-2 days Long Mcknight MD [REFERRING] - 1-2 days Bert Price [STAFF PHYSICIAN] - 1-2 days
[2019-12-10 21:58] VITALS: BP 106/69; TEMP 98
== END 2019-12-10 22:02 | disposition home or self-care (01) ==
LOC: EC 18:04
DX: J45.901 Unspecified asthma with (acute) exacerbation (principal); D72.829 Elevated white blood cell count, unspecified; Z20.828 Contact with and (suspected) exposure to other viral communicable diseases; F17.200 Nicotine dependence, unspecified, uncomplicated; Z88.1 Allergy status to other antibiotic agents
CPT/HCPCS: 36415; 94640 ×2; 93005; 85379; 80053; 84484; 85025; 81003; 81025; 71046; 99285; 96374; U0003; J2930

== ENCOUNTER 2020-04-12 00:06 | Emergency (ER) | payer OTHER ==
[2020-04-12] MEDS ORDERED: SODIUM CHLORIDE 0.9% 1,000 ML IV ONE (00:26)
[2020-04-12] MEDS ORDERED: METOCLOPRAMIDE 5 MG/ML 2 ML VIAL IVP STA (00:26)
[2020-04-12] MEDS ORDERED: diphenhydrAMINE 50 MG/ML 1 ML VIAL IVP STA (00:26)
[2020-04-12] MEDS ORDERED: KETOROLAC 15 MG/ML 1 ML VIAL IVP STA (00:26)
--- NOTE | 2020-04-12 00:36 | ED ---
Headache HPI - General Chief Complaint: Headache Stated Complaint: Migraine Time Seen by Provider: 04/12/20 00:14 Mode of arrival: ambulatory - History of Present Illness Initial Comments: 29-year-old female patient with past medical issues significant for migraine headache presents to the emergency department today for evaluation of migraine headache. States symptoms have been present for the last 4 days. States today she has been vomiting so she presented here for further evaluation. Denies taking any medication for her symptoms. States she is not currently prescribed any abortive or preventive medications. States she did previously get occipital nerve blocks a hasn't had one in quite some time. She is reporting light and sound sensitivity. Denies any dizziness or weakness. She has had some vomiting but denies any hematemesis, diarrhea, hematochezia, or melena. Denies any recent head injury or syncope. Patient denies any recent rash, fever, chills, cough, shortness of breath, chest pain, abdominal pain, back pain, hematuria, dysuria, urinary urgency, urinary frequency, or any other complaints. - Related Data Home Medications Medication Instructions Recorded Confirmed Albuterol Inhaler (Mhu) [Ventolin 1 - 2 puff INHALATION RT-Q6H PRN 07/02/18 07/02/18 Hfa Inhaler] Montelukast [Singulair] 10 mg PO DAILY 07/02/18 07/02/18 Previous Rx's Medication Instructions Recorded Albuterol Inhaler (Mhu) [Ventolin 1 - 2 puff INHALATION RT-Q6H PRN 07/02/18 Hfa Inhaler] #1 inhaler Dexamethasone [Decadron] 12 mg PO ONCE #2 tablet 07/02/18 predniSONE 50 mg PO DAILY #5 tab 12/10/19 Allergies Allergy/AdvReac Type Severity Reaction Status Date / Time cefprozil [From Cefzil] Allergy Unknown Verified 04/12/20 00:11 Review of Systems ROS Statement: Those systems with pertinent positive or pertinent negative responses have been documented in the HPI. ROS Other: All systems not noted in ROS Statement are negative. Past Medical History Past Medical History: Asthma Additional Past Medical History / Comment(s): back/neck pain, carpal tunnel, migranes History of Any Multi-Drug Resistant Organisms: None Reported Past Surgical History: Orthopedic Surgery Additional Past Surgical History / Comment(s): right ankle surgery 2013 Past Psychological History: No Psychological Hx Reported Smoking Status: Current every day smoker Past Alcohol Use History: Occasional Past Drug Use History: Marijuana General Exam General appearance: alert, in no apparent distress, other (This is a well- developed, well-nourished adult female patient in no acute distress. Vital signs upon presentation are temperature 98.6F, pulse 69, respirations 19, blood pressure 141/89, pulse ox 98% on room air) Eye exam: Present: normal appearance, PERRL, EOMI. Absent: scleral icterus, conjunctival injection, nystagmus, periorbital swelling ENT exam: Present: normal exam, normal oropharynx, mucous membranes moist Respiratory exam: Present: normal lung sounds bilaterally. Absent: respiratory distress, wheezes, rales, rhonchi, stridor Cardiovascular Exam: Present: regular rate, normal rhythm, normal heart sounds. Absent: systolic murmur, diastolic murmur, rubs, gallop, clicks Neurological exam: Present: alert, oriented X3, CN II-XII intact, other (Strength in all 4 extremities is 5/5.) Psychiatric exam: Present: normal affect, normal mood Skin exam: Present: warm, dry, intact, normal color. Absent: rash Course Vital Signs 04/12/20 00:09 Temperature 98.6 F Pulse Rate 69 Respiratory 19 Rate Blood Pressure 141/89 O2 Sat by Pulse 98 Oximetry Medical Decision Making - Medical Decision Making 29-year-old female patient who has a past medical history significant for migraine headaches presents to the emergency department today for evaluation of headache 4 days. Patient states her symptoms are consistent with her usual migraine pattern. States that she is having some light sensitivity and sound sensitivity. Reports vomiting today. Physical examination is unremarkable. She is neurologically intact with no focal deficits. She was given IV fluids, IV medications. Upon reevaluation she is resting complain bed. States her symptoms are improved. She does feel comfortable being discharged home at this time. She is instructed to follow-up with her primary care physician for recheck in 1-2 days. Return parameters were discussed in detail. She verbalizes understanding and agrees with this plan. - Lab Data Lab Results 04/12/20 Range/Units 00:35 Urine HCG, Qual Not Detected (Not Detectd) Disposition Clinical Impression: Migraine Disposition: HOME SELF-CARE Condition: Good Instructions (If sedation given, give patient instructions): Migraine Headache (ED) Additional Instructions: Increase fluids. Rest. Follow up through primary care physician for recheck in 1-2 days. Return to the emergency department for any new, worsening, or concerning symptoms. Is patient prescribed a controlled substance at d/c from ED?: No Referrals: None,Stated [Primary Care Provider] - 1-2 days Time of Disposition: 01:32
[2020-04-12 02:10] VITALS: BP 104/64; PULSE 70; RESP 18; TEMP 98
== END 2020-04-12 02:10 | disposition home or self-care (01) ==
LOC: EC 00:06
DX: G43.909 Migraine, unspecified, not intractable, without status migrainosus (principal); J45.909 Unspecified asthma, uncomplicated; F17.200 Nicotine dependence, unspecified, uncomplicated; Z79.899 Other long term (current) drug therapy; Z88.1 Allergy status to other antibiotic agents
CPT/HCPCS: 81025; 99283; 96374; 96375 ×2; 96361 ×2; J1200; J2765; J1885

== ENCOUNTER 2020-10-14 14:03 | Emergency (ER) | payer OTHER ==
[2020-10-14 14:10] VITALS: RESP 16
[2020-10-14] MEDS ORDERED: diphenhydrAMINE 50 MG CAP PO STA (15:05)
[2020-10-14] MEDS ORDERED: methylPREDNISolone SOD SUCCI 125 MG/2 ML VIAL IM ONE (15:06)
[2020-10-14] MEDS ORDERED: IBUPROFEN 800 MG TAB PO STA (15:07)
--- NOTE | 2020-10-14 15:14 | ED ---
Skin/Abscess/FB HPI - General Chief complaint: Skin/Abscess/Foreign Body Stated complaint: rash Source: patient, RN notes reviewed Mode of arrival: wheelchair Limitations: no limitations - History of Present Illness Initial comments: 30-year-old white female presents to the emergency room with complaints of left knee pain after working yesterday. She states that she also developed a rash all over her arms and upper body which she believes is related to the dishwater at work. She states that her clothing was wet when she left work from the dishwater and her arms were exposed to the detergent which she believes could be cause of her rash. She states that when she left work yesterday she started to feel itchy all over. She took Benadryl with no relief at 9:30 this morning in addition to Motrin. She states that her left knee is swollen and also believes related to being on her feet at work. She states that she normally does have bilateral knee pain however the left knee is more swollen today and she denies injury. She is a pack-a-day smoker. MD complaint: rash -: days(s) (1) Location: generalized Severity scale (1-10): 9 (Left knee pain) Quality: aching, constant Consistency: constant Improves with: none Worsens with: movement Treatments Prior to Arrival: none - Related Data Home Medications Medication Instructions Recorded Confirmed Albuterol Inhaler (Mhu) [Ventolin 1 - 2 puff INHALATION RT-Q6H PRN 07/02/18 07/02/18 Hfa Inhaler] Montelukast [Singulair] 10 mg PO DAILY 07/02/18 07/02/18 Previous Rx's Medication Instructions Recorded Albuterol Inhaler (Mhu) [Ventolin 1 - 2 puff INHALATION RT-Q6H PRN 07/02/18 Hfa Inhaler] #1 inhaler Dexamethasone [Decadron] 12 mg PO ONCE #2 tablet 07/02/18 predniSONE 50 mg PO DAILY #5 tab 12/10/19 predniSONE 50 mg PO DAILY #5 tab 10/14/20 Allergies Allergy/AdvReac Type Severity Reaction Status Date / Time cefprozil [From Cefzil] Allergy Unknown Verified 10/14/20 14:07 Review of Systems ROS Statement: Those systems with pertinent positive or pertinent negative responses have been documented in the HPI. ROS Other: All systems not noted in ROS Statement are negative. Past Medical History Past Medical History: Asthma Additional Past Medical History / Comment(s): back/neck pain, carpal tunnel, migranes History of Any Multi-Drug Resistant Organisms: None Reported Past Surgical History: Orthopedic Surgery Additional Past Surgical History / Comment(s): right ankle surgery 2013 Past Psychological History: No Psychological Hx Reported Smoking Status: Current every day smoker Past Alcohol Use History: None Reported Past Drug Use History: Marijuana General Exam Limitations: no limitations General appearance: alert, in no apparent distress Head exam: Present: atraumatic, normocephalic, normal inspection Eye exam: Present: normal appearance, PERRL, EOMI. Absent: scleral icterus, conjunctival injection, periorbital swelling ENT exam: Present: normal exam, normal oropharynx, mucous membranes moist Neck exam: Present: normal inspection, full ROM. Absent: tenderness, meningismus, lymphadenopathy Respiratory exam: Present: normal lung sounds bilaterally. Absent: respiratory distress, wheezes, rales, rhonchi, stridor Cardiovascular Exam: Present: regular rate, normal rhythm, normal heart sounds. Absent: systolic murmur, diastolic murmur, rubs, gallop, clicks GI/Abdominal exam: Present: soft, normal bowel sounds. Absent: distended, tenderness, guarding, rebound, rigid Left Knee exam: Present: tenderness, swelling, abrasion, effusion, pain w/ pronation/supination, pain/laxity with valgus, pain/laxity with varus. Absent: full ROM, laceration, dislocation, full knee extension Lower Leg exam: Present: abrasion Back exam: Present: full ROM, rash noted. Absent: tenderness, CVA tenderness (R), CVA tenderness (L), muscle spasm, paraspinal tenderness, vertebral tenderness Neurological exam: Present: alert, oriented X3, CN II-XII intact Psychiatric exam: Present: normal affect, normal mood Skin exam: Present: warm, dry, intact, normal color, urticaria. Absent: rash, cyanosis, diaphoretic, erythema, petechiae, pallor, mottled, other (Generalized hives to the chest, abdomen, back and bilateral arms) Course Vital Signs 10/14/20 10/14/20 14:07 16:33 Temperature 98.4 F 98.2 F Pulse Rate 99 90 Respiratory 16 16 Rate Blood Pressure 101/66 110/72 O2 Sat by Pulse 95 98 Oximetry Medical Decision Making - Medical Decision Making X-ray of the left knee shows osteoarthritis and chondrocalcinosis but no fracture. There is some meniscal calcification and a small knee joint effusion. She was placed in a knee immobilizer and directed to take Tylenol for pain. She was also directed not to take Motrin while she is taking the prednisone. Patient's rash is likely contact dermatitis from the dishwater from work. She was directed to continue the Benadryl and also start Pepcid once a day [id number]. She was prescribed prednisone and referred to dermatology as needed. Case discussed with Dr. Abreu. Disposition Clinical Impression: Contact dermatitis, Knee pain Disposition: HOME SELF-CARE Condition: Fair Instructions (If sedation given, give patient instructions): Contact Dermatitis (ED), Knee Pain (ED) Additional Instructions: Wear knee immobilizer and follow-up with the primary care doctor or orthopedics. Use Tylenol for pain. Take Benadryl and Pepcid over the counter and prednisone as prescribed for the rash. Do not take Motrin while taking prednisone. Fo llow-up with the primary care doctor or dermatology for the rash as needed. Do not take hot showers as it will worsen your rash, warm showers only. Return if worsening symptoms including difficulty in breathing or fevers. Prescriptions: predniSONE 50 mg PO DAILY #5 tab Is patient prescribed a controlled substance at d/c from ED?: No Referrals: None,Stated [Primary Care Provider] - 1-2 days Diego Esquivel DO [Doctor of Osteopathic Medicine] - 1-2 days Effie Johnson MD [STAFF PHYSICIAN] - 1-2 days Time of Disposition: 16:02
--- NOTE | 2020-10-14 15:34 | XR ---
EXAMINATION TYPE: XR knee complete LT DATE OF EXAM: 10/14/2020 COMPARISON: NONE HISTORY: Knee pain and swelling TECHNIQUE: 3 views FINDINGS: There is spurring on the patella. There is small knee joint effusion. There is some spurrin g of the femoral and tibial condyles. I see no fracture nor dislocation. There is some meniscal calci fication. IMPRESSION: Osteoarthritis and chondrocalcinosis. No fracture.
[2020-10-14 16:34] VITALS: BP 110/72; PULSE 90; TEMP 98.2
== END 2020-10-14 16:33 | disposition home or self-care (01) ==
LOC: EC 14:03
DX: M17.12 Unilateral primary osteoarthritis, left knee (principal); L25.9 Unspecified contact dermatitis, unspecified cause; J45.909 Unspecified asthma, uncomplicated; F17.200 Nicotine dependence, unspecified, uncomplicated; F12.90 Cannabis use, unspecified, uncomplicated; Z79.52 Long term (current) use of systemic steroids; Z79.51 Long term (current) use of inhaled steroids
CPT/HCPCS: 73562; 99283; 96372; L1830 ×2; J2930

== ENCOUNTER 2020-11-30 13:09 | Emergency (ER) | payer OTHER ==
[2020-11-30 13:30] VITALS: BP 117/83; TEMP 98.6
[2020-11-30] MEDS ORDERED: DEXAMETHASONE SOD PHOSPHATE 10 MG/ML 1 ML VIAL IM STA (13:40)
--- NOTE | 2020-11-30 14:20 | XR ---
EXAMINATION TYPE: XR chest 2V DATE OF EXAM: 11/30/2020 COMPARISON: 12/10/2019 HISTORY: Chest pain TECHNIQUE: Frontal and lateral views of the chest are obtained. FINDINGS: Mild patchy density right medial lung base may reflect developing infiltrate. Correlate clinically. No evidence for pneumothorax. No pleural effusion. The cardiac silhouette size is within normal limits. The osseous structures are grossly intact. IMPRESSION: 1. Mild patchy density right medial lung base may reflect developing infiltrate. Correlate clinicall y.
[2020-11-30] MEDS ORDERED: IPRATROPIUM-ALBUTEROL 3 ML NEB INHALATION STA (14:24)
--- NOTE | 2020-11-30 14:35 | ED ---
URI HPI - General Chief Complaint: Upper Respiratory Infection Stated Complaint: Nausea/Diarrhea/SOB Time Seen by Provider: 11/30/20 13:33 Source: patient, RN notes reviewed Mode of arrival: ambulatory Limitations: no limitations - History of Present Illness Initial Comments: Patient is a 30-year-old female that presents to emergency department complain ing of upper respiratory tract symptoms and shortness of breath. She notes she is a history of asthma has done at home breathing treatments with no relief. She notes she came in to get evaluated. She denied any other symptoms or complaints. She was otherwise a well-appearing 30-year-old female. She denied chest pain headache nausea vomiting diarrhea constipation fever fatigue chills. - Related Data Home Medications Medication Instructions Recorded Confirmed Albuterol Inhaler (Mhu) [Ventolin 1 - 2 puff INHALATION RT-Q6H PRN 07/02/18 07/02/18 Hfa Inhaler] Montelukast [Singulair] 10 mg PO DAILY 07/02/18 07/02/18 Previous Rx's Medication Instructions Recorded Albuterol Inhaler (Mhu) [Ventolin 1 - 2 puff INHALATION RT-Q6H PRN 07/02/18 Hfa Inhaler] #1 inhaler Dexamethasone [Decadron] 12 mg PO ONCE #2 tablet 07/02/18 predniSONE 50 mg PO DAILY #5 tab 12/10/19 predniSONE 50 mg PO DAILY #5 tab 10/14/20 Albuterol Sulfate [Albuterol 2 puff PO Q6H #8.5 gm 11/30/20 Sulfate Hfa] Ipratropium-Albuterol Nebulize 3 ml INHALATION QID #75 ml 11/30/20 [Duoneb 0.5 mg-3 mg/3 ml Soln] Levofloxacin [Levaquin] 500 mg PO DAILY #10 tab 11/30/20 Allergies Allergy/AdvReac Type Severity Reaction Status Date / Time cefprozil [From Cefzil] Allergy Unknown Verified 11/30/20 13:30 Review of Systems ROS Statement: Those systems with pertinent positive or pertinent negative responses have been documented in the HPI. ROS Other: All systems not noted in ROS Statement are negative. Past Medical History Past Medical History: Asthma Additional Past Medical History / Comment(s): back/neck pain, carpal tunnel, migranes History of Any Multi-Drug Resistant Organisms: None Reported Past Surgical History: Orthopedic Surgery Additional Past Surgical History / Comment(s): right ankle surgery 2013 Past Psychological History: No Psychological Hx Reported Smoking Status: Current every day smoker Past Alcohol Use History: None Reported Past Drug Use History: Marijuana General Exam Limitations: no limitations General appearance: alert, in no apparent distress, obese Head exam: Present: atraumatic, normocephalic, normal inspection Eye exam: Present: normal appearance, PERRL, EOMI. Absent: scleral icterus, conjunctival injection, periorbital swelling ENT exam: Present: normal exam, mucous membranes moist Neck exam: Present: normal inspection Respiratory exam: Present: rhonchi (Bilaterally and middle lower lobes.). Absent: normal lung sounds bilaterally, respiratory distress, wheezes, rales, stridor Cardiovascular Exam: Present: regular rate, normal rhythm, normal heart sounds. Absent: systolic murmur, diastolic murmur, rubs, gallop, clicks Extremities exam: Present: normal inspection, full ROM, normal capillary refill. Absent: tenderness, pedal edema, joint swelling, calf tenderness Neurological exam: Present: alert, oriented X3 Psychiatric exam: Present: normal affect, normal mood Skin exam: Present: warm, dry, intact, normal color. Absent: rash Course Vital Signs 11/30/20 11/30/20 13:26 14:12 Temperature 98.6 F Pulse Rate 85 Respiratory 22 22 Rate Blood Pressure 117/83 O2 Sat by Pulse 97 Oximetry Medical Decision Making - Medical Decision Making 30-year-old female complaining of upper respiratory tract symptoms for the past several days with no relief from at home medications. Covid test, chest x-ray ordered. 10 mg of Decadron, DuoNeb ordered. Covid test negative. Chest x-ray shows developing patchy infiltrate to be early signs of pneumonia. Patient will be sent antibiotics. Case discussed with Dr. Ramon, patient can discharge home with follow-up to primary care. Patient is agreeable with discharge home, vital signs stable. - Lab Data Lab Results 11/30/20 Range/Units 13:58 Coronavirus (PCR) Not Detected (Not Detectd) - Radiology Data Radiology results: report reviewed, image reviewed Chest x-ray: Mild patchy density right medial lung base may reflect developing infiltrate. Correlate clinically. Disposition Clinical Impression: Upper respiratory tract infection Disposition: HOME SELF-CARE Condition: Stable Instructions (If sedation given, give patient instructions): Upper Respiratory Infection (ED) Additional Instructions: Please return to the Emergency Department if symptoms worsen or any other concerns. Follow-up with primary care 1-2 days. Take antibiotics as prescribed until complete. Get plenty rest. Is patient prescribed a controlled substance at d/c from ED?: No Referrals: None,Stated [Primary Care Provider] - 1-2 days Time of Disposition: 14:35
[2020-11-30 14:48] VITALS: PULSE 88; RESP 18
== END 2020-11-30 15:01 | disposition home or self-care (01) ==
LOC: EC 13:09
DX: J06.9 Acute upper respiratory infection, unspecified (principal); F17.200 Nicotine dependence, unspecified, uncomplicated; J45.909 Unspecified asthma, uncomplicated; Z20.822 Contact with and (suspected) exposure to COVID-19; Z88.8 Allergy status to other drugs, medicaments and biological substances
CPT/HCPCS: 94640; 87635; 71046; 99283; 96372; J1100

== ENCOUNTER 2021-11-26 14:48 | Emergency (ER) | payer BC, OTHER ==
[2021-11-26 15:47] LABS: Basophils # (A) 0.1 k/uL (0-0.2); Basophils % (A) 1 %; Eosinophils # (A) 0.2 k/uL (0-0.7); Eosinophils % (A) 2 %; HCT 44.9 % (34.0-46.0); HGB 14.5 gm/dL (11.4-16.0); Lymphocytes # (A) 1.6 k/uL (1.0-4.8); Lymphocytes % (A) 18 %; MCH 28.3 pg (25.0-35.0); MCHC 32.4 g/dL (31.0-37.0); MCV 87.5 fL (80.0-100.0); Mean Platelet Volume 8.4; Monocytes # (A) 0.5 k/uL (0-1.0); Monocytes % (A) 6 %; Neutrophils # (A) 6.7 k/uL (1.3-7.7); Neutrophils % (A) 73 %; Platelet Count 167 k/uL (150-450); RBC 5.12 m/uL (3.80-5.40); RDW 13.5 % (11.5-15.5); WBC 9.2 k/uL (3.8-10.6)
[2021-11-26 15:53] LABS: Appearance,Urine Clear (Clear); Bilirubin,Urine Negative (Negative); Blood,Urine Negative (Negative); Color,Urine Yellow; Glucose,Urine (UA) Negative (Negative); Ketones,Urine Negative (Negative); Leukocyte Esterase,Urine Small (Negative); Mucus,Urine Rare /hpf; Nitrite,Urine Negative (Negative); PH, Urine 6.5 (5.0-8.0); Protein,Urine Negative (Negative); RBC,Urine 1 /hpf (0-5); Specific Gravity,Urine 1.024 (1.001-1.035); Squamous Epithelial Cell,Urine 4 /hpf (0-4); Urobilinogen,Urine <2.0 mg/dL (<2.0); WBC,Urine 6 /hpf (0-5)
[2021-11-26 15:58] LABS: ALT 14 U/L (4-34); AST 19 U/L (14-36); African American GFR (CKD) >90 (>60 ml/min/1.73 sqM); Albumin 4.1 g/dL (3.5-5.0); Alkaline Phosphatase 47 U/L (38-126); Amylase 47 U/L (30-110); Anion Gap 12 mmol/L; Blood Urea Nitrogen 13 mg/dL (7-17); Calcium 9.1 mg/dL (8.4-10.2); Carbon Dioxide 24 mmol/L (22-30); Chloride 105 mmol/L (98-107); Glucose 118 mg/dL (74-99); Lipase 70 U/L (23-300); Non-African American GFR(CKD) >90 (>60 ml/min/1.73 sqM); Potassium 3.9 mmol/L (3.5-5.1); Sodium 141 mmol/L (137-145); Total Bilirubin 0.2 mg/dL (0.2-1.3); Total Protein 6.7 g/dL (6.3-8.2)
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
[2021-11-26] MEDS ORDERED: SODIUM CHLORIDE 0.9% 1,000 ML IV ONE (17:43)
[2021-11-26] MEDS ORDERED: KETOROLAC 15 MG/ML 1 ML VIAL IVP STA (17:43)
[2021-11-26 19:10] VITALS: BP 108/68; PULSE 75; RESP 16; TEMP 98.4
--- NOTE | 2021-11-26 19:17 | CT ---
EXAMINATION TYPE: CT abdomen pelvis w con CT DLP: 2614.4 mGycm, Automated exposure control for dose reduction was used. DATE OF EXAM: 11/26/2021 6:50 PM COMPARISON: 02/07/2013 CLINICAL INDICATION:Female, 31 years old with history of abdominal pain diffuse; LLQ PAIN TECHNIQUE: Axial CT of the abdomen and pelvis. Sagittal and coronal reformats were created on a [employer] workstation. Contrast used:100 mL of Isovue 300 with IV Contrast, Oral contrast used: without Oral Contrast FINDINGS: LOWER CHEST: Unremarkable ABDOMEN LIVER: Unremarkable GALLBLADDER AND BILE DUCTS: Unremarkable. PANCREAS: Unremarkable. SPLEEN: Unremarkable. ADRENAL GLANDS: Unremarkable. KIDNEYS AND URETERS: No evidence of hydronephrosis or renal calculus. The ureters are unremarkable. PELVIS BLADDER: Unremarkable REPRODUCTIVE: Asymmetrically enlarged right ovary measuring up to 4.6 x 3.2 cm's. Corpus luteum noted on the right. ABDOMEN & PELVIS STOMACH AND BOWEL: No evidence of bowel obstruction. Appendix normal. PERITONEUM: No evidence of pneumoperitoneum or free fluid. VASCULATURE: No evidence of aortic aneurysm. MUSCULOSKELETAL: No acute osseous abnormalities, multilevel disc degeneration changes throughout the spine. Multilevel disc bulging noted throughout the spine. LYMPH NODES: No gross evidence for lymphadenopathy. SOFT TISSUE/ABDOMINAL WALL: Unremarkable IMPRESSION: Asymmetrically enlarged right ovary. Consider pelvic ultrasound for further evaluation. Otherwise no evidence for acute process within the abdomen or pelvis.
== END 2021-11-26 19:58 | disposition home or self-care (01) ==
LOC: EC 14:48
DX: R10.32 Left lower quadrant pain (principal); J45.909 Unspecified asthma, uncomplicated; F17.200 Nicotine dependence, unspecified, uncomplicated; F12.90 Cannabis use, unspecified, uncomplicated; Z88.1 Allergy status to other antibiotic agents
CPT/HCPCS: 99284 ×2; 96374 ×2; 96361 ×2; 36415; 80053; 82150; 83690; 85025; 81001; 81025; 74177; J1885; Q9967